=== PATIENT | female | born 1975 | race African-American/Black ===

== ENCOUNTER 2018-11-08 13:43 | Emergency (ER) | payer MEDICAID ==
[~2018-11-08] VITALS: Ht 170.2 cm; Wt 104.3 kg
[~2018-11-08 13:43] MED LIST: LASIX40 MG PO; birth control PO
[2018-11-08] MEDS ORDERED: SPIRONOLACTONE100 MG ORAL (14:00)
[2018-11-08] MEDS ORDERED: WARFARIN SODIUM4 MG ORAL ×2 (14:00→15:55)
[2018-11-08] MEDS ORDERED: METOPROLOL SUCC25 MG ORAL (14:02)
[2018-11-08] MEDS ORDERED: CYMBALTA30 MG ORAL (14:02)
[2018-11-08] MEDS ORDERED: TENEX1 MG ORAL (14:02)
[2018-11-08] MEDS ORDERED: AMLODIPINE BESY10 MG ORAL (14:02)
[2018-11-08] MEDS ORDERED: FUROSEMIDE40 MG ORAL (14:02)
[2018-11-08] MEDS ORDERED: LOSARTAN POTASS25 M1 PO (14:02)
--- NOTE | 2018-11-08 14:09 | NUR ---
ED Nurse Note: Pt came into the ER w/ complaints of dizziness x 5 days. Pt denies n,d,v. Pt denies pain. Pt is A + O x4. Ambulatory. Skin warm to touch. Pt states that before whenever she got dizzy it is because her INR level.
--- NOTE | 2018-11-08 14:18 | Emergency Room Report ---
History of Present Illness General Chief Complaint: Dizziness Source: Patient Present Illness HPI Patient is a 43-year-old female presented after increased dizziness. She reports having increased feeling of motion sensation. This had occurred with brief episodes lasting 1 minute. Patient prior history of aortic dissection and had a mechanical valve placement. Patient had previous been on Coumadin but had not had her INR checked for several weeks. She had not been vomiting. She denies being . Allergies: Coded Allergies: No Known Allergies (Unverified , 11/08/18) Patient History Past Medical History: see triage record Last Menstrual Period: 10/30/18 Now: No Reviewed Nursing Documentation: PMH: Agreed; PSxH: Agreed Nursing Documentation-PMH Past Medical History: No History, Except For Hx Cardiac Problems: Yes - HX OF VALVE REPLACEMENT Hx Hypertension: Yes Hx Pacemaker: Yes Hx Cancer: No Hx Gastrointestinal Problems: Yes - Nausea on and off since wednesday Hx Neurological Problems: No Review of Systems All Other Systems: negative except mentioned in HPI Physical Exam Vital Signs Date Time Temp Pulse Resp B/P (MAP) Pulse Ox O2 Delivery O2 Flow Rate FiO2 11/08/18 13:55 98.4 60 16 109/73 96 Room Air Sp02 EP Interpretation: reviewed, normal General Appearance: normal inspection, well appearing, no apparent distress, alert, GCS 15, obese Head: atraumatic ENT: normal ENT inspection, hearing grossly normal, normal voice Neck: normal inspection, full range of motion, supple, no bony tend Respiratory: normal inspection, lungs clear, normal breath sounds, no respiratory distress, no retraction, no wheezing Cardiovascular #1: regular rate, rhythm, no edema Gastrointestinal: normal inspection, normal bowel sounds, non tender, soft, no guarding, no hernia Genitourinary: no CVA tenderness Musculoskeletal: normal inspection, back normal, normal range of motion Neurologic: normal inspection, alert, oriented x3, responsive, test lead III-XII nml as tested, speech normal Psychiatric: normal inspection, judgement/insight normal, mood/affect normal Skin: normal inspection, normal color, no rash Medical Decision Making Diagnostic Impression: Primary Impression: Dizziness ER Course Presented for dizziness. Differential diagnosis include was not limited to hyperglycemia, electrolyte abnormality, coagulopathy, anemia among others. Because of complexity of patient's case laboratory testing and imaging studies were ordered. Last Vital Signs Date Time Temp Pulse Resp B/P (MAP) Pulse Ox O2 Delivery O2 Flow Rate FiO2 11/08/18 13:55 98.4 60 16 109/73 96 Room Air Status: improved Disposition: HOME, SELF-CARE Condition: Stable Jone Andrews MD Nov 08, 2018 14:18
--- NOTE | 2018-11-08 15:03 | NUR ---
ED Nurse Note: Blood has been collected and sent to lab.
[2018-11-08 15:25] VITALS: BP 107/74
[2018-11-08 15:32] LABS: EOSINOPHILS % (AUTO) 1.2 % (0.0-3.0); HEMATOCRIT 39.4 % (37.0-47.0); HEMOGLOBIN 13.4 G/DL (12.0-16.0); LYMPHOCYTES % (AUTO) 17.6 % (20.0-45.0); MEAN CORPUSCULAR VOLUME 94 FL (80-99); NEUTROPHILS % (AUTO) 73.3 % (45.0-75.0); PLATELET COUNT 247 K/UL (150-450); WHITE BLOOD COUNT 8.1 K/UL (4.8-10.8)
[2018-11-08 15:33] LABS: INR 2.8 (0.9-1.1)
[2018-11-08 15:38] LABS: ANION GAP 8 mmol/L (5-15); BLOOD UREA NITROGEN 12 mg/dL (7-18); CALCIUM 8.2 MG/DL (8.5-10.1); CARBON DIOXIDE 28 MMOL/L (21-32); CHLORIDE 103 MMOL/L (98-107); POTASSIUM 4.1 MMOL/L (3.5-5.1); SODIUM 139 MMOL/L (136-145)
[2018-11-08 15:42] LABS: ALANINE AMINOTRANSFERASE 18 U/L (12-78); ALBUMIN 3.3 G/DL (3.4-5.0); ALBUMIN/GLOBULIN RATIO 0.9 (1.0-2.7); ALKALINE PHOSPHATASE 82 U/L (46-116); ASPARTATE AMINO TRANSFERASE 13 U/L (15-37); BILIRUBIN,TOTAL 0.4 MG/DL (0.2-1.0)
[2018-11-08] MEDS ORDERED: ZOFRAN4 MG ORAL (15:55)
[2018-11-08 16:01] VITALS: BP 113/74
--- NOTE | 2018-11-08 16:02 | NUR ---
ER DISCHARGE NOTE: Patient is cleared to be discharged per ERMD, pt is aox4, on room air, with stable vital signs. pt was given dc and prescription instructions, pt was able to verbalize understanding, pt id band and iv site removed without complications. pt is able to ambulate with steady gait. pt took all belongings.
--- NOTE | 2018-11-09 15:57 | Cardiology Report ---
APPROVED REPORT EKG Measurement Heart [id number] Sinus bradycardia with 1st degree AV block Left axis deviation Left bundle branch block Abnormal ECG
== END 2018-11-08 16:03 | disposition home or self-care (01) ==
LOC: EMR 14:37
DX: R42 Dizziness and giddiness (principal); I10 Essential (primary) hypertension; Z95.2 Presence of prosthetic heart valve; Z95.0 Presence of cardiac pacemaker
CPT/HCPCS: 36415; 80053; 81025; 82962; 85025; 85610; 85730; 93005; 99283